=== PATIENT | female | born 1975 | race Hispanic/Latino ===

== ENCOUNTER 2018-11-17 00:18 | Emergency (ER) | payer OTHER ==
[2018-11-17] MEDS ORDERED: Ketorolac Tromethamine 30 MG/ML VIAL ONE (00:45)
--- NOTE | 2018-11-17 09:43 | RAD ---
RADIOGRAPH LEFT SHOULDER 3 VIEWS: HISTORY: A 43-year-old female with left shoulder pain. FINDINGS: No fracture or dislocation. Slightly widened AC joint due to truncation of distal tip of clavicle. No high-grade DJD. IMPRESSION: No acute fracture. POS: KYLER
--- NOTE | 2018-11-17 09:49 | RAD ---
RADIOGRAPH RIGHT FOOT 3 VIEWS: HISTORY: A 43-year-old female with right foot pain. FINDINGS: Diffuse osteopenia. No fracture or dislocation. No high-grade DJD. No destructive osseous lesion. IMPRESSION: 1. No focal major osseous pathology identified. 2. Osteopenia. POS: YANICK
== END 2018-11-17 01:17 | disposition home or self-care (01) ==
LOC: SCSER 00:18
DX: S43.402A Unspecified sprain of left shoulder joint, initial encounter (principal); S90.32XA Contusion of left foot, initial encounter; E03.9 Hypothyroidism, unspecified; E11.9 Type 2 diabetes mellitus without complications; Z79.4 Long term (current) use of insulin; V80.010A Animal-rider injured by fall from or being thrown from horse in noncollision accident, initial encounter
CPT/HCPCS: 96372; J1885

== ENCOUNTER 2019-08-01 10:50 | Outpatient (CLI) | payer OTHER | END 2019-08-01 10:51 | disposition home or self-care (01) | LOC: CTENTCT 10:50 | PROVIDERS: ATTEND Specialist | DX: J32.9 Chronic sinusitis, unspecified (principal); R51 Headache | CPT/HCPCS: 70486 ==

== ENCOUNTER 2020-04-07 12:05 | Outpatient (CLI) | payer OTHER ==
--- NOTE | 2020-04-07 12:23 | RAD ---
EXAM: Chest 2 views: HISTORY: Cough COMPARISON: 03/10/2010 FINDINGS: There is a normal-sized cardiomediastinal silhouette. There is no evidence of consolidation, mass, or pleural effusion. The bones are unremarkable. IMPRESSION: No evidence of acute cardiopulmonary disease
== END 2020-04-07 12:06 | disposition home or self-care (01) ==
LOC: BICRAD 12:05
PROVIDERS: ATTEND Internal Medicine Critical Care Medicine
DX: R06.00 Dyspnea, unspecified (principal)
CPT/HCPCS: 71046

== ENCOUNTER 2020-08-25 15:19 | Outpatient (CLI) | payer OTHER | END 2020-08-25 15:20 | disposition home or self-care (01) | LOC: CTENTCT 15:19 | PROVIDERS: ATTEND Specialist | DX: L02.01 Cutaneous abscess of face (principal) | CPT/HCPCS: 70486 ==

== ENCOUNTER 2020-09-06 07:49 | Outpatient (CLI) | payer OTHER ==
[2020-09-07 09:25] LABS: SARS-CoV-2 MS2 Positive; SARS-CoV-2 N Gene Negative; SARS-CoV-2 S Gene Negative; SARS-CoV-2 by NAA Not Detected (NotDetected); SARS-CoV-2 orf1ab Negative
== END 2020-09-06 07:50 | disposition home or self-care (01) ==
LOC: LABBT 07:49
PROVIDERS: ATTEND Specialist
DX: Z01.812 Encounter for preprocedural laboratory examination (principal); Z20.828 Contact with and (suspected) exposure to other viral communicable diseases; L02.01 Cutaneous abscess of face; J35.01 Chronic tonsillitis; J35.1 Hypertrophy of tonsils; J35.8 Other chronic diseases of tonsils and adenoids; R49.0 Dysphonia; J34.89 Other specified disorders of nose and nasal sinuses
CPT/HCPCS: 85014; 87635; U0003